=== PATIENT | male | born 2005 | race Caucasian/White ===

== ENCOUNTER 2023-08-01 06:12 | Emergency (ER) | payer SELFPAY ==
[~2023-08-01] VITALS: Ht 170.2 cm; Wt 63.0 kg
[2023-08-01] MEDS ORDERED: FAMOTIDINE 20 MG TAB PO ONE (08:30)
[2023-08-01] MEDS ORDERED: SUCRALFATE SUSP 1GM/10ML UD PO ONE (08:30)
[2023-08-01] MEDS ORDERED: ONDANSETRON 4MG ORAL DISINTEGRATING TAB PO ONE (08:30)
[2023-08-01] MEDS ORDERED: ONDA4TAB6 PO (08:36)
[2023-08-01 09:38] VITALS: BP 131/73; TEMP 97.7; O2SAT 99
== END 2023-08-01 09:39 | disposition home or self-care (01) ==
LOC: M ED 06:12
DX: K29.20 Alcoholic gastritis without bleeding (principal); R11.10 Vomiting, unspecified; Z79.83 Long term (current) use of bisphosphonates; F17.210 Nicotine dependence, cigarettes, uncomplicated; F10.10 Alcohol abuse, uncomplicated